=== PATIENT | male | born 1965 | race Caucasian/White ===

== ENCOUNTER 2021-11-11 21:22 | Emergency (ER) | payer OTHER, SELFPAY ==
[2021-11-11] VITALS (11 sets, daily range): BP systolic 153–191; BP diastolic 71–95; PULSE 109–131; RESP 17–20; TEMP 36.9; O2SAT 96–100; BMI 27.0
--- NOTE | 2021-11-11 21:24 | DI.RAD.S_ITS ---
PROCEDURE: XR CHEST 1V INDICATIONS: chest pain TECHNIQUE: One view of the chest was acquired. COMPARISON: None. FINDINGS: Surgical changes and devices: None. Lungs and pleura: Lungs are clear. No pleural effusions or pneumothorax. Mediastinum: Mediastinal contours appear normal. Heart size is normal. Bones and chest wall: No suspicious bony lesions. Overlying soft tissues appear unremarkable. IMPRESSION: No acute cardiopulmonary disease. Dictated by: Mile Mcleod M.D. on 11/11/2021 at 22:41 Approved by: Mile Mcleod M.D. on 11/11/2021 at 22:41
[2021-11-11] MEDS: ASPIRIN 81 MG CHEW TAB 324 MG PO (21:30)
[2021-11-11 21:41] LABS: Add Manual Diff / Slide Review NO; Basophils Absolute Auto 0 /uL (0-100); Basophils Percent Auto 1.3 % (0-2); Eosinophils Absolute Auto 0 /uL (0-450); Eosinophils Percent Auto 1.4 % (2-4); Hematocrit 43.3 % (41-53); Hemoglobin 15.1 g/dL (13.5-17.5); Lymphocytes Absolute Auto 1100 /uL (1100-4500); Lymphocytes Percent Auto 55.6 % (25-40); Mean Corpuscular Hemoglobin 32.8 PG (26-34); Mean Corpuscular Volume 93.9 fL (80-100); Monocytes Absolute Auto 100 /uL (0-900); Monocytes Percent Auto 3.2 % (3-14); Neutrophils Absolute Auto 800 /uL (1500-7000); Neutrophils Percent Auto 38.5 % (50-75); Platelet Count 71 X10^3/uL (150-400); Red Blood Cell Count 4.61 X10^6/uL (4.5-5.9); Red Cell Distribution Width 15.6 % (11.6-14.8)
[2021-11-11] MEDS: SODIUM CHLORIDE 0.9% 1,000 ML 150 ML IV (21:46)
[2021-11-11 21:47] LABS: Alanine Aminotransferase 23 IU/L (<50); Albumin 4.7 g/dL (3.5-5.0); Albumin Globulin Ratio 1.5 (1.0-2.8); Alkaline Phosphatase 53 U/L (38-126); Aspartate Aminotransferase 30 IU/L (17-59); BUN Creatinine Ratio 16.8 (6-22); Bilirubin Total 0.9 mg/dL (0.2-1.3); Blood Urea Nitrogen 19 mg/dL (9-20); Carbon Dioxide 25 mmol/L (22-32); Chloride 103 mmol/L (98-107); Creatine Kinase 91 U/L (55-170); Estimated Glomerular Filt Rate > 60 mL/min (>60); Globulin 3.1 g/dL (1.7-4.1); Glucose 160 mg/dL (70-100); HEMOLYSIS 42 (0-50); Lipase 123 U/L (23-300); Potassium 3.5 mmol/L (3.4-5.1); Sodium 139 mmol/L (137-145); Total Protein 7.8 g/dL (6.3-8.2)
[2021-11-11 21:58] LABS: Troponin I < 0.012 ng/mL (0.01-0.034)
[2021-11-11 22:19] LABS: D Dimer < 200 ng/mL (<230)
--- NOTE | 2021-11-11 22:29 | ED_ITS ---
HPI - Chest Pain General Chief Complaint: Chest Pain Stated Complaint: chest pain Time Seen by Provider: 11/11/21 21:24 History of Present Illness HPI narrative: 56-year-old male nonsmoker with history of hypertension presents with his in the chief complaint of palpitations and anxiety that started about 1 hour prior to his arrival. He states that he had a normal day and was in his normal state of health, he went to sleep at about 7 or 8:00 p.m., which is normal for him and awoke with retrosternal chest pressure and pounding heart rate followed by some shortness of breath and feeling anxious. He denies any provocation, palliation or radiation of his symptoms. He denies any history of the same. He denies any exertional worsening or recent exercise intolerance. He denies recent travel, injury, history of clot or cancer. He denies any change in medications or diet. He does state that he has been under significant stress at home which has been altering his sleep a bit. Related Data Home Medications Medication Instructions Recorded Confirmed ASPIRIN (Aspirin) 81 mg PO Q DAY #0 03/05/11 ASPIRIN/ACETAMINOPHEN/CAFFEINE 1 tab PO PRN #0 03/05/11 (Excedrin Migraine Geltab) HYDROCHLOROTHIAZIDE (#HYDROCOT) 25 mg PO #0 03/05/11 atenolol 100 mg tablet 50 mg PO Q DAY #0 03/05/11 lisinopril 10 mg tablet 10 mg PO QDAY #0 05/27/16 Previous Rx's Medication Instructions Recorded ketorolac 10 mg tablet 10 mg PO Q8HP PRN #30 tab 05/27/16 prednisone 20 mg tablet 20 mg PO SEE INSTRUCTIONS #15 tab 05/27/16 Allergies Allergy/AdvReac Type Severity Reaction Status Date / Time No Known Allergies Allergy Uncoded 10/25/17 12:10 Review of Systems Review of Systems Narrative: GENERAL: Denies chills, fatigue, malaise, fever, sweats. HEENT: Denies sinus pain, ear pain, sore throat, difficulty swallowing, dizziness. RESPIRATORY: See HPI CARDIOVASCULAR: See HP GASTROINTESTINAL: Denies nausea, vomiting, abdominal pain, diarrhea, constipation, melena. : Denies dysuria, frequency, incontinence, hematuria, urinary retention. MUSCULOSKELETAL: denies weakness, joint pain, or bony pain SKIN: Denies rash, skin lesions, or other NEUROLOGIC: Denies weakness, headache, numbness, change in speech, confusion, seizures, incoordination. PSYCHIATRIC: No concerning psychosocial issues. 12 point review of systems is negative except for those stated above Exam Narrative Exam Narrative: GENERAL: [56 year old patient appears stated age. Well-developed patient, in mild distress. Bit anxious HEAD: Atraumatic. Normocephalic. EYES: Pupils equal round and reactive. Extraocular motions intact. No scleral icterus. No injection or drainage. ENT: Nose without bleeding, purulent drainage. Throat without erythema, tonsillar hypertrophy or exudate. Airway patent. NECK: Trachea midline. Non tender CARDIOVASCULAR: Tachycardic but regular rhythm without murmurs, gallops, or rubs. RESPIRATORY: Clear to auscultation. Breath sounds equal bilaterally. No wheezes, rales, or rhonchi. GASTROINTESTINAL: Abdomen soft, non-tender, nondistended. EXTREMITIES: No edema or joint tenderness. BACK: Nontender without deformity or crepitance. No flank tenderness. NEURO: AOx3. SKIN: No rash or erythema of visible areas Initial Vital Signs Initial Vital Signs: Vital Signs Pulse Rate 128 H 11/11/21 21:27 Respiratory Rate 17 11/11/21 21:27 Pulse Oximetry 100 11/11/21 21:27 Course Orders Ordered: ED Orders 11/11/21 21:24 XR chest 1V Stat EKG-12 Lead Stat 11/11/21 21:30 Complete Blood Count AUTO DIFF Stat Comprehensive Metabolic Panel Stat Lipase Stat Troponin & CK Cardiac Panel Stat 11/11/21 21:31 D Dimer Stat 11/11/21 23:00 CT angio chest PE protocol Stat 11/12/21 00:40 Troponin & CK Cardiac Panel Stat Discontinued Medications Aspirin (Aspirin 81 Mg Chew Tab) 324 mg PO NOW ONE Stop: 11/11/21 21:25 Last Admin: 11/11/21 21:30 Dose: 243 mg Documented by: ATAYLOR Diltiazem HCl (Diltiazem 5 Mg/Ml Sdv) 10 mg IV NOW ONE Stop: 11/12/21 01:20 Last Admin: 11/12/21 01:30 Dose: 10 mg Documented by: NRHOADS Sodium Chloride (Normal Saline 0.9%) 1,000 mls @ 150 mls/hr IV CONT CHRISTY Last Admin: 11/11/21 21:46 Dose: 150 mls/hr Documented by: CITLALLI Reevaluation(s) Reevaluation #1: Patient has significant improvement of symptoms up until this point. He is resting comfortably, still slightly tachycardic Time: 23:01 Reevaluation #2: patient resting comfortably. Asymptomatic. HR in the 80s. Reevaluation #3: while discussing DC instructions patient pops back to sinus tachy in the 120s. I did a modified valsalva maneuver and he had a brief pause and dropped to the 70s, but quickly went back up. Cardizem ordered. Patient observed for quite sometime afterwards and felt much better, HR remains in the upper 90s Time: 01:20 Vital Signs Vital signs: Vital Signs - 8 hr 11/11/21 21:27 11/11/21 21:28 11/11/21 21:30 Temperature 98.4 F Pulse Rate 128 H 121 H 131 H Respiratory Rate 17 20 18 Blood Pressure 191/95 H Pulse Oximetry 100 99 100 11/11/21 21:45 11/11/21 22:00 11/11/21 22:15 Temperature Pulse Rate 116 H 113 H 117 H Respiratory Rate 19 19 17 Blood Pressure 184/89 H 173/78 H 169/79 H Pulse Oximetry 100 99 99 11/11/21 22:30 11/11/21 22:45 11/11/21 23:00 Temperature Pulse Rate 109 H 113 H 115 H Respiratory Rate 19 18 19 Blood Pressure 161/75 H 161/74 H 153/71 H Pulse Oximetry 96 96 97 11/11/21 23:30 11/11/21 23:36 11/12/21 00:02 Temperature Pulse Rate 115 H 112 H 111 H Respiratory Rate 18 18 14 Blood Pressure 153/80 H 150/74 H Pulse Oximetry 97 96 97 11/12/21 00:30 11/12/21 01:00 Temperature Pulse Rate 110 H 95 H Respiratory Rate 18 17 Blood Pressure 146/76 H 139/70 Pulse Oximetry 97 95 MDM - Chest Pain Lab Data Result diagrams: 11/11/21 21:30 11/11/21 21:30 Labs: Lab Results 11/11/21 11/11/21 11/11/21 Range/Units 21:30 21:30 21:31 WBC 2.0 L (4.5-11.0) X10^3/uL RBC 4.61 (4.5-5.9) X10^6/uL Hgb 15.1 (13.5-17.5) g/dL Hct 43.3 (41-53) % MCV 93.9 (80-100) fL MCH 32.8 (26-34) PG MCHC 35.0 (30-36) % RDW 15.6 H (11.6-14.8) % Plt Count 71 L (150-400) X10^3/uL Neut % (Auto) 38.5 L (50-75) % Lymph % (Auto) 55.6 H (25-40) % [place] % (Auto) 3.2 (3-14) % Eos % (Auto) 1.4 L (2-4) % Baso % (Auto) 1.3 (0-2) % Neut # (Auto) 800 L (8440-1346) /uL Lymph # (Auto) 1100 (7980-1211) /uL [place] # (Auto) 100 (0-900) /uL Eos # (Auto) 0 (0-450) /uL Baso # (Auto) 0 (0-100) /uL D-Dimer < 200 (<230) ng/mL Sodium 139 (137-145) mmol/L Potassium 3.5 (3.4-5.1) mmol/L Chloride 103 (98-107) mmol/L Carbon Dioxide 25 (22-32) mmol/L BUN 19 (9-20) mg/dL Creatinine 1.13 (0.66-1.25) mg/dL Estimated GFR > 60 (>60) mL/min BUN/Creatinine Ratio 16.8 (6-22) Glucose 160 H (70-100) mg/dL Calcium 9.0 (8.4-10.2) mg/dL Total Bilirubin 0.9 (0.2-1.3) mg/dL AST 30 (17-59) IU/L ALT 23 (<50) IU/L Alkaline Phosphatase 53 (38-126) U/L Total Creatine Kinase 91 (55-170) U/L CK-MB (CK-2) TNP CK-MB (CK-2) Rel Index TNP Troponin I < 0.012 (0.01-0.034) ng/mL Total Protein 7.8 (6.3-8.2) g/dL Albumin 4.7 (3.5-5.0) g/dL Globulin 3.1 (1.7-4.1) g/dL Albumin/Globulin Ratio 1.5 (1.0-2.8) Lipase 123 (23-300) U/L 11/12/21 Range/Units 00:40 WBC (4.5-11.0) X10^3/uL RBC (4.5-5.9) X10^6/uL Hgb (13.5-17.5) g/dL Hct (41-53) % MCV (80-100) fL MCH (26-34) PG MCHC (30-36) % RDW (11.6-14.8) % Plt Count (150-400) X10^3/uL Neut % (Auto) (50-75) % Lymph % (Auto) (25-40) % [place] % (Auto) (3-14) % Eos % (Auto) (2-4) % Baso % (Auto) (0-2) % Neut # (Auto) (6788-2700) /uL Lymph # (Auto) (7516-5091) /uL [place] # (Auto) (0-900) /uL Eos # (Auto) (0-450) /uL Baso # (Auto) (0-100) /uL D-Dimer (<230) ng/mL Sodium (137-145) mmol/L Potassium (3.4-5.1) mmol/L Chloride (98-107) mmol/L Carbon Dioxide (22-32) mmol/L BUN (9-20) mg/dL Creatinine (0.66-1.25) mg/dL Estimated GFR (>60) mL/min BUN/Creatinine Ratio (6-22) Glucose (70-100) mg/dL Calcium (8.4-10.2) mg/dL Total Bilirubin (0.2-1.3) mg/dL AST (17-59) IU/L ALT (<50) IU/L Alkaline Phosphatase (38-126) U/L Total Creatine Kinase 70 (55-170) U/L CK-MB (CK-2) TNP CK-MB (CK-2) Rel Index TNP Troponin I < 0.012 (0.01-0.034) ng/mL Total Protein (6.3-8.2) g/dL Albumin (3.5-5.0) g/dL Globulin (1.7-4.1) g/dL Albumin/Globulin Ratio (1.0-2.8) Lipase (23-300) U/L Imaging Data CT scan - chest: Radiologist's Impression: Launch?[address] [address] [address] Scan Report Signed Patient: Mahesh Castañeda MR#: [id number] : 1965 Acct:[id number] Age/Sex: 56 / M Date of Service: 11/11/21 Loc: ED Accession Number: [id number] ?? Procedure: CT angio chest PE protocol Ordering Provider: Eliu Mendosa D.O. PROCEDURE:? CT ANGIO CHEST PE PROTOCOL ? INDICATIONS:? tachy, SOB, chest pain ? TECHNIQUE:? After the administration of intravenous contrast, 2 mm thick sections acquired from the pulmonary apices to the posterior costophrenic angles.? 3-dimensional maximum intensity projection (MIP) coronal and sagittal reformats were then acquired through the thorax.? For radiation dose reduction, the following was used:? automated exposure control, adjustment of mA and/or kV according to patient size.? ? COMPARISON:? None. ? FINDINGS:? Image quality:? Excellent.? ? Pulmonary arteries:? Pulmonary arteries are normal in size, and demonstrate no intraluminal filling defects to suggest central pulmonary embolism.? ? Lungs and pleura:? Lungs are clear.? No pleural effusions or pneumothorax.? Central and peripheral airways are patent.? ? Mediastinum:? Heart size is normal, without pericardial effusion.? No mediastinal or hilar adenopathy.? Thoracic aorta is normal in caliber and enhancement.? Esophagus is normal in caliber, without hiatal hernia.? ? Bones and chest wall:? No suspicious bony lesions.? Ribs and thoracic spine appear intact throughout.? Thyroid gland is normal.? No axillary or supraclavicular adenopathy.? ? Abdomen:? Visible upper abdomen demonstrates partially imaged splenomegaly measuring 14.5 cm in AP diameter. ? IMPRESSION:? ? 1. No pulmonary embolus. ? 2. No visible pulmonary parenchymal abnormality.? ? ? Dictated by: Mile Mcleod M.D. on 11/11/2021 at 23:46 ? ? Approved by: Mile Mcleod M.D. on 11/11/2021 at 23:51 ? ECG Data Interpretation: EKG is sinus tachycardia with rate [ 126] and free of any signs of ischemia or ectopy. No ST segmental elevation or depression. No T wave inversions MDM Narrative Medical decision making narrative: Multiple causes of chest pain considered including [place], PE, pneumothorax, pneumonia, aortic dissection, and pleurisy. Patient reports no radiation, no diaphoresis, no provocation with exertion, and no vomiting History, physical, labs and EKGs are reassuring. Initially patient was unclear but by the end of the visit he is quite certain he tends to develop anxious fe elings which are followed by a racing heart and subsequent squeezing chest pressure and palpitations. He is asymptomatic when heart rate is below 110 or so. Patient's symptoms improved over duration of stay with above-stated therapies. Findings and discharge diagnosis discussed with patient/family followed by verbalization of understanding Return precautions discussed with patient/family whom verbalize understanding. Discharge Plan Departure Patient Disposition: Home Clinical Impression: Atypical chest pain Instructions: DI for Atypical Chest Pain Activity Restrictions/Additional Instructions: *You have been diagnosed with [atypical chest pain. As we discussed her history and physical exam as well as labs, EKGs, imaging are all very reassuring. There is no evidence of heart attack, blood clot or other diagnosis that requires a specific and immediate intervention *What to do: *Please continue to take your regular medications as directed. [ ] New medication prescriptions sent to your pharmacy: [ ] [ ] New medication written as a paper prescription [ ] No new medications given *Please follow up with your primary care provider in 2-3 days, call for an appointment. Let them know you were seen in the Emergency Department and that we ask that you be seen in follow up. We will electronically transmit a record of today's note if your PCP is in our system *If you do not have a primary care provider please contact the [facility] Resource line at [phone]. They will ask some questions about your medical history and help get you set up with a doctor in the community. *Return to Emergency Department if you should have any new, worsening or concerning symptoms, such as [fever greater than 101 F, shaking chills, worsening pain, persistent vomiting or other bothersome symptoms] Prescriptions: No Action atenolol 100 MG tablet 50 mg PO Q DAY Qty: 0 0RF HYDROCHLOROTHIAZIDE (#HYDROCOT) 25 mg PO Qty: 0 0RF ASPIRIN (Aspirin) 81 mg PO Q DAY Qty: 0 0RF ASPIRIN/ACETAMINOPHEN/CAFFEINE (Excedrin Migraine Geltab) 1 tab PO PRN Qty: 0 0RF lisinopril 10 MG tablet 10 mg PO QDAY Qty: 0 0RF prednisone 20 MG tablet 20 mg PO SEE INSTRUCTIONS Qty: 15 0RF ketorolac 10 MG tablet 10 mg PO Q8HP PRNQty: 30 0RF Referrals: Silver Rodriguez MD [Primary Care Provider] -
--- NOTE | 2021-11-11 23:00 | DI.CT.S_ITS ---
PROCEDURE: CT ANGIO CHEST PE PROTOCOL INDICATIONS: tachy, SOB, chest pain TECHNIQUE: After the administration of intravenous contrast, 2 mm thick sections acquired from the pulmonary apices to the posterior costophrenic angles. 3-dimensional maximum intensity projection (MIP) coronal and sagittal reformats were then acquired through the thorax. For radiation dose reduction, the following was used: automated exposure control, adjustment of mA and/or kV according to patient size. COMPARISON: None. FINDINGS: Image quality: Excellent. Pulmonary arteries: Pulmonary arteries are normal in size, and demonstrate no intraluminal filling defects to suggest central pulmonary embolism. Lungs and pleura: Lungs are clear. No pleural effusions or pneumothorax. Central and peripheral airways are patent. Mediastinum: Heart size is normal, without pericardial effusion. No mediastinal or hilar adenopathy. Thoracic aorta is normal in caliber and enhancement. Esophagus is normal in caliber, without hiatal hernia. Bones and chest wall: No suspicious bony lesions. Ribs and thoracic spine appear intact throughout. Thyroid gland is normal. No axillary or supraclavicular adenopathy. Abdomen: Visible upper abdomen demonstrates partially imaged splenomegaly measuring 14.5 cm in AP diameter. IMPRESSION: 1. No pulmonary embolus. 2. No visible pulmonary parenchymal abnormality. Dictated by: Mile Mcleod M.D. on 11/11/2021 at 23:46 Approved by: Mile Mcleod M.D. on 11/11/2021 at 23:51
[2021-11-12 00:02] VITALS: BP 150/74; PULSE 111; RESP 14; O2SAT 97
[2021-11-12 00:30] VITALS: BP 146/76; PULSE 110; RESP 18; O2SAT 97
[2021-11-12 00:56] LABS: Creatine Kinase 70 U/L (55-170)
[2021-11-12 01:00] VITALS: BP 139/70; PULSE 95; RESP 17; O2SAT 95
[2021-11-12 01:09] LABS: Troponin I < 0.012 ng/mL (0.01-0.034)
[2021-11-12] MEDS: dilTIAZem 5 MG/ML SDV 10 MG IV (01:30)
== END 2021-11-12 02:47 | disposition home or self-care (01) ==
PROVIDERS: Emergency Provider Emergency Medicine; PCP Family Medicine
DX: R07.89 Other chest pain (principal); R00.2 Palpitations; R00.0 Tachycardia, unspecified
CPT/HCPCS: 36415; 71045; 71275; 80053; 82550; 83690; 84484; 85025; 85379; 93005; 96374; 99284; 99285; Q9967